=== PATIENT | female | born 1980 | race Two or more races ===

== ENCOUNTER 2017-10-12 10:01 | Outpatient (CLI) | END 2017-10-12 11:15 | disposition home or self-care (01) ==

== ENCOUNTER 2017-10-19 13:28 | Outpatient (CLI) | END 2017-10-19 15:29 | disposition home or self-care (01) ==

== ENCOUNTER 2017-10-26 09:55 | Outpatient (CLI) | END 2017-10-26 11:50 | disposition home or self-care (01) ==

== ENCOUNTER 2017-11-02 11:12 | Outpatient (CLI) | END 2017-11-02 13:34 | disposition home or self-care (01) ==

== ENCOUNTER 2017-11-05 06:25 | Inpatient (IN) | END 2017-11-07 19:25 | disposition home or self-care (01) | DRG 766 ==